=== PATIENT | male | born 1950 | race Caucasian/White ===

== ENCOUNTER 2016-10-02 02:39 | Inpatient (IN) | payer OTHER ==
[~2016-10-02] VITALS: Ht 170.2 cm; Wt 74.8 kg
--- NOTE | 2016-10-02 09:15 | Admission Core Measures ---
Admission Meds I reviewed the following Meds: Current Medications Sig/Aron Start time Last Medication Dose Stop Time Status Admin Acetaminophen 975 MG ONCE 10/02 NR (Tylenol) 10/02 2358 Cefazolin Sodium 2,000 MG ONCE 10/02 NR (Kefzol-Ancef Inj) 10/02 2358 Oxycodone HCl 10 MG ONCE 10/02 NR (Roxicodone) 10/02 2358 Vancomycin HCl 1,000 MG ONCE 10/02 CAN Sodium Chloride 250 ML 10/02 2358 (Normal Saline 0.9%) Vancomycin HCl 1,000 MG ONCE 10/02 CAN Dextrose/Water 250 ML 10/02 2358 (D5W) Acute Coronary Syndrome Inclusion Criteria ACS Diagnosis No Inpatient Core Measures LDL Reminder: If No, please order W/I first 24hr of stay Congestive Heart Failure Inclusion Criteria CHF Diagnosis No Cerebrovascular accident Inclusion Criteria CVA/TIA Diagnosis No Inpatient Core Measures Bedside Swallow Eval Reminder: If BSE failed, place ST order Antithrombotic Reminder: Order Antithrombotic Medication by end of day 2 Antithrombotic Reminder: Document Reason Antithrombotic Not ordered by end of day 2 AFIB/Flutter Reminder: If Present, add to problem list AFIB/Flutter Reminder: Order Anticoag Medication for pts with AFIB/Flutter Atherosclerosis Reminder: If Present, add to problem list LDL Reminder: If No, please order W/I first 24hr of stay PT Order Reminder: If No, please order Venous thromboembolism Inpatient Core Measures VTE Risk Factors: Age > 40, Surgery VTE Prophylaxis Ordered Inpt [facility] No Mech VTE prophylaxis d/t No contraindications No VTE Pharm Prophylaxis d/t No contraindications Inclusion Criteria - Per Current guidelines, there needs to be overlap - treatment for the first 5 days of Warfarin therapy. - Parenteral Anticoagulation (IV or SC) needs to be - given along with Warfarin therapy. VTE Diagnosis No VTE Type NONE VTE Confirmed by (Test) NONE Problem List As ranked by this Provider includes Assessment & Plan 1. Unilateral primary osteoarthritis, right hip
[2016-10-02] MEDS ORDERED: COLACE100 M1 PO (09:27)
[2016-10-02] MEDS ORDERED: MIRALAX17 G1 PO (09:27)
[2016-10-02] MEDS ORDERED: DILAUDID4 M1 PO (09:27)
[2016-10-02] MEDS ORDERED: ASPIRIN EC325 M2 PO (09:27)
[2016-10-02] MEDS ORDERED: MS CONTIN30 M1 PO (09:27)
--- NOTE | 2016-10-02 09:30 | Patient Discharge Instructions ---
Discharge Instructions General Discharge Information You were seen/treated for: Right hip pain You had these procedures: Right total hip replacement Watch for these problems: Increasing pain, redness, warmth, swelling. Drainage of any type from incision. Inability to bear weight on right leg. Fever greater than 101.5. Do not soak the wound: Yes No bath, but you may shower: Yes Other wound care: Daily dry dressing changes. Special Instructions: Incision: Dry dressing. May shower. No baths. No ointments of any kind. Ice as needed. Bowel regimen: Colace and or MiraLAX Weight-bearing as tolerated Follow-up with Dr. Shafer in 6 weeks. Call office for fevers greater than 101.5, excessive drainage or inability to bear weight on operative extremity. Visiting nurse will change dressing. Diet Continue normal diet: Yes Recommended Diet: Regular Additional DIET Information: Advance as tolerated Activity Full Activity/No Limits: No Activity Self Limited: Yes Pounds, do NOT lift more than: 10 Additional ACTIVITY Info: Weight-bear as tolerated Acute Coronary Syndrome Inclusion Criteria At DC or during hospital stay patient has or had the following: ACS DIAGNOSIS No Discharge Core Measures Meds if any: Prescribed or Continued at Discharge Meds if any: NOT Prescribed or Continued at Discharge Congestive Heart Failure Inclusion Criteria At DC or during hospital stay patient has or had the following: CHF DIAGNOSIS No Discharge Core Measures Meds if any: Prescribed or Continued at Discharge Meds if any: NOT Prescribed or Continued at Discharge Cerebrovascular accident Inclusion Criteria At DC or during hospital stay patient has or had the following: CVA/TIA Diagnosis No Discharge Core Measures Meds if any: Prescribed or Continued at Discharge Meds if any: NOT Prescribed or Continued at Discharge Venous thromboembolism Inclusion Criteria VTE Diagnosis No VTE Type NONE VTE Confirmed by (Test) NONE Discharge Core Measures - Per Current guidelines, there needs to be overlap - treatment for the first 5 days of Warfarin therapy. - If discharged on Warfarin prior to 5 days of - overlap therapy, the patient will need to be - assessed for post discharge needs including - *Post discharge parental anticoagulation - *Warfarin and/or parental anticoagulation education - *Follow up date to check INR post discharge At least 5 days overlap therapy as Inpatient No Meds if any: Prescribed or Continued at Discharge Note: Overlap Therapy is Warfarin and Anticoagulant Meds if any: NOT Prescribed or Continued at Discharge
--- NOTE | 2016-10-02 09:33 | Surgical Discharge Summary ---
See Addendum Visit Information Visit Dates Admission Date: 10/02/16 Discharge Date: 10/03/2016 History of Present Illness Chief Complaint: Right hip pain Medical History Isolation History: Standard Surgical History Pertinent Surgical History: non-contributory Review of Systems: See H&P Hospital Course Course Attending Physician: CORIE HATFIELD MD Primary Care Physician: DONALD DASILVA MD Hospital Course: Patient was admitted to the hospital on 10/02/2016 for an elective right total hip replacement. He tolerated the procedure well. He was transferred to a general surgical floor. His diet was advanced and tolerated. His vital signs were stable and within normal limits. He voided spontaneously. His pain was well controlled. He was evaluated and treated by physical therapy. He was deemed appropriate for discharge. Allergies: Coded Allergies: Penicillins (Severe, ITCHING... ADVISED BY NEVER TO HAVE PCN AGAIN .. ) Disposition Summary Disposition Principal Diagnosis: Right hip unilateral primary osteoarthritis Additional Diagnosis: None Discharge Disposition: home health services Discharge Instructions General Discharge Information Code Status: Full Code Patient's Diet: Regular, advance as tolerated Patient's Activity: Weight-bear as tolerated on right leg Follow-Up Instructions/Appts: Incision: Dry dressing. May shower. No baths. No ointments of any kind. Ice as needed. Bowel regimen: Colace and or MiraLAX Weight-bearing as tolerated Follow-up with Dr. Hatfield in 6 weeks. Call office for fevers greater than 101.5, excessive drainage or inability to bear weight on operative extremity. Visiting nurse will change dressing. Medications at Discharge Discharge Medications: Start taking the following new medications: Hydromorphone HCl (Dilaudid) 4 MG TABLET 1-2 Tablet ORAL Q4-6H as needed for PAIN Qty = 36 No Refills Morphine Sulfate (Ms Contin) 30 MG TABLET.ER 1 Tablet ORAL TWICE DAILY Qty = 6 No Refills Aspirin (Ecotrin*) 325 MG TABLET.DR 1 Tablet ORAL TWICE DAILY Qty = 60 No Refills Polyethylene Glycol 3350 (Miralax) 17 GRAM POWD.PACK 1 Packet ORAL DAILY Qty = 7 No Refills Instructions: dissolve in water, DISCONTINUE USE IF YOU DEVELOP LOOSE STOOL OR DIARRHEA Docusate Sodium (Colace) 100 MG CAPSULE 1 Capsule ORAL TWICE DAILY Qty = 14 No Refills
--- NOTE | 2016-10-02 10:30 | RADIOLOGY REPORT ---
EXAMINATION: XR HIP, RIGHT CLINICAL INFORMATION: Status post right hip replacement COMPARISON: None TECHNIQUE: Two views of the right hip. FINDINGS: There has been a total right hip replacement. Hardware is in anatomic alignment. No fracture. There is gas in the regional soft tissues, expected for the immediately postoperative period. IMPRESSION: Status post total right hip replacement without evidence of hardware complication.
[2016-10-02 11:30] VITALS: BP 136/74
--- NOTE | 2016-10-02 11:30 | NUR ---
Received from PACU: A 66 year old male s/p Right THR. Alert oriented x3. Spouse at bedside. Patient ambulated from OR stretcher with PT. Vital signs stable. Sitting in chair after physical therapy. Dressing intact to right hip. +Mobility, +Sensation, +Pedal Pulses bilateral lower legs. Reviewed plan of care with patient/spouse. See nursing assessment flowsheets for further documentation. Call ellis in reach. Urinal at bedside. Notified to call for assistance with mobility. Dietary notified of arrival to unit for ordering lunch meal.
--- NOTE | 2016-10-02 13:37 | Operative Report ---
Operative/Inv Procedure Report Surgery Date: 10/02/16 Name of Procedure: Right total hip replacement Pre-Operative Diagnosis: Primary right hip DJD Post-Operative Diagnosis: Same Estimated Blood Loss: 350 Surgeon/Title Manager: LIU ANDRADE,CORIE Denis Anesthesia: block Operative/Procedure Note Note: Description of Procedure: The patient was taken to the operating room and positively identified. After induction of spinal anesthesia and administration of appropriate pre-operative antibiotics, the patient was positioned supine on the operating room table and all bony prominences were well padded. After performing a surgical timeout, the right lower extremity was prepped and draped in the usual sterile fashion. A direct anterior approach was made to the right hip. The incision was carried sharply through superficial soft tissues to the level of the fascia. Meticulous hemostasis was maintained with Bovie electocautery. The fascia over the tensor fascia herminio muscle was opened sharply and the interval between the TFL and the sartorius was entered bluntly taking care to stay lateral to the lateral femoral cutaneous nerve. Retractors were placed around the femoral neck and the pericapsular fat was identified. The ascending branches of the lateral femoral circumflex vessels were identified and carefully coagulated. The pericapsular fat and anterior capsule were then resected. A napkin ring osteotomy was performed and the femoral head was removed without difficulty. Attention was then turned to the acetabulum. After appropriate placement of retractors, the acetabulum was exposed. Soft tissue was cleaned from the acetabular margin and notch. Overhanging osteophytes were removed and the teardrop was exposed. The acetabulum was then sequentially reamed to accept a 62 mm [place] Tritanium hemispherical solid back shell. This was impacted into place in the appropriate position and fitted with a 36 mm Trident X3 zero degree polyethylene insert. Attention was then turned to the femur. After performing the appropriate ligament releases, the proximal femur was exposed. It was then sequentially broached to accept a size 7 [place] accolade 2 stem. This was trialed for leg length and stability. The trial component was removed and the final component was impacted into place. The trunnion was carefully cleaned and fit with a 36 mm, -2.5 Biolox delta ceramic femoral head. The hip was reduced and put through a full range of motion and found to be stable. The articular space was then irrigated with sterile saline. The periarticular soft tissues were infilitrated with Marcaine. The fascial layer was closed with interrupted #1 vicryl suture and the skin was re-approximated with interrupted 2 -0 vicryl. The skin was closed with a running 3-0 V-Lock suture. Steri-strips and a sterile dressing were applied. The patient was awakened and taken to the recovery room in satisfactory condition.
[2016-10-02 13:48] VITALS: BP 110/62
--- NOTE | 2016-10-02 14:35 | PN- Orthopedic ---
Subjective Subjective: The patient was seen this afternoon postoperatively. He reports his pain is under adequate control and other complaints at the current time. He was eager to work with physical therapy and possibly go home later this afternoon. Objective Vital Signs and I&Os Vital Signs Date Time Temp Pulse Resp B/P Pulse O2 O2 Flow FiO2 Ox Delivery Rate 10/02 1348 98.8 48 20 110/62 100 10/02 1130 96.2 45 18 136/74 98 Room Air Intake & Output 10/02 1600 10/02 0810/02 0000 10/01 1600 10/01 0800 10/01 0000 Intake Total 630 Output Total 400 Balance 230 Intake, IV 150 Intake, Oral 480 Output, Urine 400 Patient 165 lb Weight Positive postoperative void Physical Exam: Gen.: Alert and obvious distress Skin: Warm and dry Cardiac: S1-S2 regular Pulmonary: Bilateral breath sounds equal with good exchange Extremities: Bilateral lower extremities are warm without calf tenderness or significant edema. Gross motor and sensory were intact. Right hip surgical dressing was clean, dry, and intact. The right thigh was soft without signs of significant edema or hematoma. Assessment/Plan Assessment/Plan Assessment: 66-year-old male status post right total hip arthroplasty. Postoperative patient is progressing as expected, his pain is under adequate control, and he is working with physical therapy. Plan: Hep-Lock IV fluids Advance diet as tolerated GI and DVT prophylaxis Start aspirin 325 mg by mouth twice a day first dose tonight Continue current pain regiment Resume home medications If is cleared with physical therapy the patient may be discharged later today. Core Measures/Miscellaneous Venous Thromboembolism VTE Risk Factors: Age > 40, Surgery VTE Contraindications: No Contraindications VTE Prophylaxis Ordered Inpt: Mech & Pharm VTE Diagnosis: No VTE Type: NONE VTE Confirmed by (Test): NONE Beta Kana Is Beta Kana a Home Med? No Antibiotics Is Patient on Antibiotics? Yes If Yes: prophylaxis
[2016-10-02 15:49] VITALS: BP 118/68; BP 120/60
== END 2016-10-02 17:29 | disposition home health service (06) | DRG 470 ==
LOC: ENRESERVDT → ENRESERVTM → SDA 02:39 → 2NA 10:51
PROVIDERS: ADMIT Orthopaedic Surgery
PROC: 0SR904A Replacement of Right Hip Joint with Ceramic on Polyethylene Synthetic Substitute, Uncemented, Open Approach (ICD-10-PCS; principal; 2016-10-02)
DX: M16.11 Unilateral primary osteoarthritis, right hip (principal); E55.9 Vitamin D deficiency, unspecified; N40.0 Benign prostatic hyperplasia without lower urinary tract symptoms; L71.9 Rosacea, unspecified
CPT/HCPCS: 2NASP; 73502-RT; 88304; 97110-GO; 97116-GO; 97161-GP; 97530-GO; J0690; J0735; J2405; J2550; J3370; J7040; J7042; J7060